=== PATIENT | female | born 1995 | race Caucasian/White ===

== ENCOUNTER 2017-03-10 08:26 | Emergency (ER) | payer BC ==
[2017-03-10] MEDS ORDERED: Metoclopramide IV* 5 MG/ML 2 ML VIAL IV ONE (09:17)
[2017-03-10] MEDS ORDERED: Ketorolac INJ* 30 MG/ML 1 ML VIAL IV ONE (09:17)
[2017-03-10] MEDS ORDERED: diPHENhydraMINE IV* 50 MG/ML 1 ml VIAL (BENADRYL) IV ONE (09:17)
[2017-03-10] MEDS ORDERED: NS 0.9% 1000 ML* 1,000 ML IV ONE (09:17)
--- NOTE | 2017-03-10 10:18 | ED ---
Headache - HPI Summary HPI Summary: Patient has been having intermittent headaches for the past three days that resemble her migraines, which she has a history of. 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 She presents with what feels like to beginning of a migraine. She has a neurologist back home in [place] but will not be home for weeks. She denies fever, chills, neck stiffness, URI, N/V/D or vision changes. No neurological deficits. - History Of Current Complaint Chief Complaint: EDHeadache Stated Complaint: HEADACHE Time Seen by Provider: 03/10/17 08:43 Hx Obtained From: Patient Onset/Duration: Gradual Onset Initially Headache Was: Mild Currently Pain Is: Mild Timing: Intermittent, Lasting: Character: Dull, Typical Headache, Migraine Location of Headache: Diffuse Aggravating Factor: Bright Lights Allevating Factors: Nothing Associated Signs And Symptoms: Nausea Related History: Similar Episode/DX As: - hx of migraine - Allergies/Home Medications Allergies/Adverse Reactions: Allergies Allergy/AdvReac Type Severity Reaction Status Date / Time Amoxicillin Allergy Unknown Verified 03/10/17 09:09 Reaction Details Shellfish Allergy Allergy Swelling Verified 03/10/17 09:09 Of Face,Lips,& Throat PMH/Surg Hx/FS Hx/Imm Hx Neurological History: Reports: Hx Migraine Infectious Disease History: No Infectious Disease History: Denies: Traveled Outside the in Last 30 Days - Family History Known Family History: Positive: None - Social History Occupation: Student Lives: With Family Alcohol Use: None Substance Use Type: Reports: None Smoking Status (MU): Never Smoked Tobacco Review of Systems Negative: Fever, Chills Positive: Photophobia. Negative: Blurred Vision, Diplopia, Drainage Negative: Sore Throat, Ear Ache Negative: Myalgia Positive: Headache. Negative: Weakness, Paresthesia, Numbness All Other Systems Reviewed And Are Negative: Yes Physical Exam Triage Information Reviewed: Yes Vital Signs On Initial Exam: Initial Vitals Temp Pulse Resp BP Pulse Ox 97.3 F 69 18 156/96 100 03/10/17 08:39 03/10/17 08:39 03/10/17 08:39 03/10/17 08:39 03/10/17 08:39 Vital Signs Reviewed: Yes Appearance: Positive: Well-Appearing - patient is alert and very conversant, No Pain Distress, Well-Nourished Skin: Positive: Warm, Skin Color Reflects Adequate Perfusion, Dry, Soft Head/Face: Positive: Normal Head/Face Inspection Eyes: Positive: EOMI, TIA, Conjunctiva Clear ENT: Positive: Hearing grossly normal, Pharynx normal, TMs normal Neck: Positive: Supple, Nontender, No Lymphadenopathy Respiratory/Lung Sounds: Positive: Clear to Auscultation, Breath Sounds Present Cardiovascular: Positive: RRR Musculoskeletal: Negative: Edema Left, Edema Right Neurological: Positive: Sensory/Motor Intact, Alert, Oriented to Person Place, Time, CN Intact II-III, NV Bundle Intact Distally, Normal Gait Psychiatric: Positive: Affect/Mood Appropriate AVPU Assessment: Alert - [place] Coma Scale Coma Scale Total: 15 Diagnostics - Vital Signs Vital Signs Temp Pulse Resp BP Pulse Ox 03/10/17 10:03 62 99 03/10/17 09:12 84 99 03/10/17 09:10 140/94 03/10/17 09:06 97.3 F 73 16 140/94 98 03/10/17 08:39 97.3 F 69 18 156/96 100 - Laboratory Lab Statement: Any lab studies that have been ordered have been reviewed, and results considered in the medical decision making process. Re-Evaluation - Re-Evaluation First Eval Re-Evaluation Time: 11:00 Change: Improved Comment: Pain improved. Headache Course/Dx - Diagnoses Differential Diagnosis/HQI/PQRI: Migraine, Sinus Headache, Tension Headache, Viral Syndrome Provider Diagnoses: Migraine Discharge - Discharge Plan Condition: Stable Disposition: HOME Prescriptions: SUMAtriptan TAB* [Imitrex TAB*] 100 mg PO SEE INSTRUCTIONS #2 tab Patient Education Materials: Migraine Headache (ED) Referrals: Non Staff,Doctor [Primary Care Provider] - Additional Instructions: Please use the medication provided as needed and contact your regular doctor when your return home over the break to discuss today's visit. Return to the emergency if symptoms worsen.
[2017-03-10 11:27] VITALS: BP 111/66
== END 2017-03-10 11:27 | disposition home or self-care (01) ==
LOC: ED 08:26
DX: G43.909 Migraine, unspecified, not intractable, without status migrainosus (principal); H53.149 Visual discomfort, unspecified
CPT/HCPCS: 96374; 96375; 99283; J1200; J1885